=== PATIENT | male | born 2000 | race Hispanic/Latino ===

== ENCOUNTER 2021-05-14 17:19 | Emergency (ER) | payer SELFPAY ==
[~2021-05-14] VITALS: Ht 165.1 cm; Wt 68.0 kg
--- OUTSIDE RECORDS SUMMARY | 2021-05-14 20:06 | XMS ---
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 E.Gloria VISIT COUNT (12 MO.) 1 Avril Fonseca [address] [place], [place] [address]Seb [address] [place] [address] TOTAL 3 NOTE: Visits indicate total known visits. ED/UCC VISIT TRACKING (12 MO.) 05/14/2021 17:20 BENNY Luis TYPE: Emergency COMPLAINT: - CHEST PAIN 05/10/2021 22:33 [facility] TYPE: Emergency DIAGNOSES: - Chest Pain - Other chest pain [facility] [place] [facility] DIAGNOSES: - Shortness of Breath - F , CHEST PAIN, SOB INPATIENT VISIT TRACKING (12 MO.) No inpatient visits to display in this time frame [email or web address]
--- NOTE | 2021-05-14 20:45 | EKG ---
[facility] [address] [facility] [place], [place] [address] Signed Normal sinus rhythm Normal ECG No previous ECGs available Confirmed by LUIS ALFREDO HERNANDEZ MD ([id number] on 05/14/2021 8:45:37 PM Electronically Signed By: LUIS ALFREDO HERNANDEZ MD 05/14/212044 PATIENT NAME: RAYMON MATOS Electrocardiogram DATE OF : [birth year] PHYSICIAN: LUIS ALFREDO HERNANDEZ MD REPORT #: [id number] REPORT IS CONFIDENTIAL AND NOT TO BE RELEASED WITHOUT AUTHORIZATION
== END 2021-05-14 20:17 | disposition home or self-care (01) ==
LOC: ED 17:19
DX: R07.9 Chest pain, unspecified (principal)
CPT/HCPCS: 71045; 80053; 83735; 84484; 85025; 93005; 93010; 99285-25